=== PATIENT | male | born 1940 | race Caucasian/White ===

== ENCOUNTER 2019-12-25 09:09 | Outpatient (REF) | payer MEDICARE, BC, SELFPAY ==
[2019-12-25 09:42] LABS: Chol HDL Ratio 2.47 mg/dL (1.0-5.00); Cholesterol 141 mg/dL (0-200); HDL Cholesterol 57 mg/dL (60-100); LDL Cholesterol Calculated 72 mg/dL (50-129); LDL HDL Ratio 1.26 RATIO (0.00-3.22); Triglycerides 62 mg/dL (0-150)
== END 2019-12-25 09:10 | disposition home or self-care (01) ==
LOC: LAB 09:09
PROVIDERS: Visit Provider Dermatology
DX: Z01.89 Encounter for other specified special examinations (principal)
CPT/HCPCS: 36415; 80061

== ENCOUNTER 2020-05-17 15:14 | Outpatient (CLI) | payer MEDICARE, BC, SELFPAY ==
[2020-05-18 07:11] LABS: 25 Hydroxy Vitamin D 30 ng/mL (30-100)
== END 2020-05-17 15:15 | disposition home or self-care (01) ==
PROVIDERS: PCP Nurse Practitioner; Visit Provider Internal Medicine Nephrology
DX: N18.3 Chronic kidney disease, stage 3 (moderate) (principal)
CPT/HCPCS: 36415; 82306

== ENCOUNTER 2020-05-30 07:53 | Outpatient (CLI) | payer MEDICARE, BC, SELFPAY ==
[2020-05-30 08:40] LABS: Basophils # 0.1 10^3/uL (0.0-0.1); Basophils % 0.7 %; Eosinophils # 0.2 10^3/uL (0.0-0.8); Eosinophils % 3.2 %; Hematocrit 33.1 % (42.0-52.0); Hemoglobin 9.3 g/dL (11.7-16.6); Lymphocytes # 1.1 10^3/uL (0.8-4.8); Lymphocytes % 14.1 %; Mean Corpuscular HGB Conc 28.1 g/dL (30.0-36.0); Mean Corpuscular Hemoglobin 21.8 pg (28.0-34.0); Mean Corpuscular Volume 77.5 fL (80-94); Monocytes # 0.4 10^3/uL (0.2-0.9); Monocytes % 5.6 %; Neutrophils # 5.65 10^3/uL (1.8-7.7); Nucleated Red Blood Cells % 0 %; Platelet Count 180 10^3/cmm (130-400); Red Blood Count 4.27 10^6/uL (4.1-5.3); Red Cell Distribution Width 17.6 % (12.1-15.1); White Blood Count 7.4 10^3/uL (4.0-10.0)
[2020-05-30 09:04] LABS: Albumin Level 3.8 g/dL (3.5-5.2); Anion Gap 12.4 (5-19); Blood Urea Nitrogen 25 mg/dL (8-23); Calcium 9.1 mg/dL (8.5-10.5); Carbon Dioxide 24 mmol/L (22-29); Chloride 105 mmol/L (98-107); Glucose 98 mg/dL (65-115); Phosphorus 3.1 mg/dL (2.5-4.5); Potassium 3.4 mmol/L (3.5-5.1); Sodium 138 mmol/L (136-145)
[2020-05-30 09:16] LABS: Calcium 9.6 mg/dL (8.5-10.5); Parathyroid Hormone 102.3 pg/mL (15-65)
== END 2020-05-30 07:54 | disposition home or self-care (01) ==
PROVIDERS: Visit Provider Internal Medicine Nephrology
DX: N18.3 Chronic kidney disease, stage 3 (moderate) (principal)
CPT/HCPCS: 80069; 82306; 82310; 83970; 85025

== ENCOUNTER → 2020-07-27 18:34 | Outpatient (BNVA) | payer MEDICARE, BC, SELFPAY | PROVIDERS: Visit Provider Nurse Practitioner Family | DX: N39.0 Urinary tract infection, site not specified (principal) | CPT/HCPCS: 81000; 87086 ==

== ENCOUNTER → 2020-11-15 13:04 | Outpatient (BNVA) | payer MEDICARE, BC, SELFPAY | PROVIDERS: Visit Provider Family Medicine | DX: E78.00 Pure hypercholesterolemia, unspecified (principal); I10 Essential (primary) hypertension; K21.9 Gastro-esophageal reflux disease without esophagitis; D64.9 Anemia, unspecified; Z96.652 Presence of left artificial knee joint | CPT/HCPCS: 80053; 80061; 85025 ==

== ENCOUNTER 2021-02-06 09:52 | Outpatient (CLI) | payer MEDICARE, BC, SELFPAY ==
--- NOTE | 2021-02-06 10:30 | CT_ITS ---
WS: [id number] CT ABDOMEN PELVIS TECHNIQUE: Noncontrast CT of the abdomen and pelvis with coronal and sagittal reformatted images. CLINICAL INFORMATION: trauma to right abdomen COMPARISON: CT 8 10,018 DLP: 1701.[address] scans at [facility] use at least one of these dose optimization techniques: automat ed exposure control; mA and/or kV adjustment per patient size (includes targeted exams where dose is matched to clinical indication); or iterative reconstruction. FINDINGS: Prior postoperative changes infrarenal aortic endograft repair with biiliac extension is unchanged. L dionte bases are well aerated. Excluded infrarenal abdominal aortic aneurysm sac measures 4.7 x 5.1 CM. This is increased compared t o 2018 where it measured 4.1 x 3.9cm.Endograft repair has been extended to involve the thoracic aorta . Bilateral proximal renal artery stents. This is new from previous. Celiac and SMA stent. Tortuous e ctatic common iliac arteries. Dense vascular calcification. Mesenteric calcification unchanged. Numerous incidental low-attenuation hepatic cysts. Cholelithiasis. Low-attenuation lesions in the spl een likely cysts or hemangiomas. Small esophageal hiatal hernia. 15 mm adrenal adenoma moderate spondylitic changes lumbar spine. No visualized rib fractures in the l ower chest or upper abdomen.. Left gland is normal. Bilateral renal cortical atrophy. No hydronephros is in either kidney. Stable bilateral renal cysts. Calcified enlarged prostate measuring 4.5 CM. Normal sigmoid colon. No evidence of small or large bow el obstruction. Fat-containing umbilical hernia. Sternotomy. CT/CT abdomen pelvis wo con [id number] IMPRESSION: 1. No visualized rib fractures in the upper abdomen. 2. Prior aortic endograft repair with interval increase in size of the exclude d aneurysm sac today measuring 5.1 x 4.7 cm concerning for slow endoleak. Recom mend further evaluation with aortic endograft protocol. 3. Extension of the endograft repair into the thoracic aorta is new from previ ous. 4. Bilateral renal artery stents and mesenteric stent. 5. Stable bilateral hepatic cysts. 6. Cholelithiasis. 7. Renal cortical atrophy with stable presumed small renal cysts. 8. Small esophageal hiatal hernia. 9. No other significant interval changes. 10. Enlarged prostate measuring 4.5 CM. Recommend correlation PSA.
== END 2021-02-06 09:53 | disposition home or self-care (01) ==
LOC: RADWPI 10:03
PROVIDERS: PCP Family Medicine; Visit Provider Family Medicine
DX: S30.1XXA Contusion of abdominal wall, initial encounter (principal); X58.XXXA Exposure to other specified factors, initial encounter; D64.9 Anemia, unspecified; I10 Essential (primary) hypertension; N18.9 Chronic kidney disease, unspecified; N40.0 Benign prostatic hyperplasia without lower urinary tract symptoms; K44.9 Diaphragmatic hernia without obstruction or gangrene; N26.1 Atrophy of kidney (terminal); N28.1 Cyst of kidney, acquired; K76.89 Other specified diseases of liver
CPT/HCPCS: 74176; 80053; 85025; G0103

== ENCOUNTER → 2021-04-17 11:35 | Outpatient (BNVA) | payer MEDICARE, BC, SELFPAY | PROVIDERS: PCP Family Medicine; Visit Provider Family Medicine | DX: E78.00 Pure hypercholesterolemia, unspecified (principal); I10 Essential (primary) hypertension; H81.10 Benign paroxysmal vertigo, unspecified ear; N18.31 Chronic kidney disease, stage 3a; K21.9 Gastro-esophageal reflux disease without esophagitis | CPT/HCPCS: 80053; 80061; 85025 ==

== ENCOUNTER 2021-05-25 12:11 | Emergency (ER) | payer MEDICARE, BC, SELFPAY ==
[2021-05-25] VITALS (7 sets, daily range): BP systolic 178–195; BP diastolic 67–100; PULSE 16–72; RESP 16–18; TEMP 36.6; O2SAT 95–100; BMI 27.1
--- NOTE | 2021-05-25 12:18 | ECG_ITS ---
[facility] Test Date: 2021-05-25 Pat Name: Evans Romero Department: Room: Gender: Male Rig Superintendent: : 1940 Requested By: Shukri Ball Order Number: [id number] Sharonda MD: GEORGINA NICOLAS Measurements Intervals [place] Rate: 69 P: 16 [place]: 186 QRS: -15 QRSD: 101 T: 74 QT: 403 QTc: 432 Interpretive Statements SINUS RHYTHM INCOMPLETE RIGHT BUNDLE BRANCH BLOCK [90+ ms QRS DURATION, TERMINAL R IN V1/V2, 40+ ms S IN I/aVL/V4/V5/V6] LEFT VENTRICULAR HYPERTROPHY AND ST-T CHANGE [VOLTAGE CRITERIA PLUS ST/T ABNORMALITY] No previous ECG available for comparison Electronically Signed On 05-25-2021 19:24:07 CDT by GEORGINA NICOLAS [id number]
--- NOTE | 2021-05-25 12:19 | ED_ITS ---
HPI - General Adult General: Chief complaint: Altered Mental Status Stated complaint: AMS/ HALLUCINATING Time Seen by Provider: 05/25/21 12:13 History of Present Illness: HPI narrative: This patient is an 80-year-old male who presents to the emergency department complaining of mental status changes. Patient was found sitting in the backseat of his pickup truck for over 2 hours at a local [email or web address]. Police Department states the patient just sat there. Wh en he was approached and asked what he was doing he stated that a female had driven him to the area when anxiety is the bathroom. But after being observed for 2 hours there was no other person there. Patient other than that cannot give any description of the person or when he got picked up from home. Patient stated that he woke up around 6 AM and has not had breakfast. Patient admits that he has been seen by his primary care physician over the past week or so due to confusion issues. Patient believes that it was related to medications. Medical records show that the patient has not been seen by primary care related to this facility since 10 April and at that time was related to vertigo. Patient states that he has had issues where he sees people sitting around corners trying to sneak up on him. Will do medical evaluation treat as needed Onset (ago): unknown Associated symptoms: Deny chest pain, dyspnea, headache(s), nausea, rash, palpitations or vomiting Review of Systems General: Reports: 10 or more systems reviewed and unremarkable except in HPI and below Const: Denies: fever(s), chills, body aches or fatigue Eyes: Denies: change in vision or blurry vision ENMT: Denies: throat pain, hoarseness or mouth pain Card: Denies: chest pain, palpitations, irregular heart rhythm, edema, swelling of feet/ankles or lightheadedness Resp: Denies: dyspnea, productive cough, non-productive cough, wheezing or pain on inspiration GI: Denies: abdominal pain, nausea or vomiting : Denies: flank pain, dysuria, urinary frequency, urinary urgency or urinary hesitancy Musc: Denies: neck pain, back pain, extremity pain, extremity swelling, joint pain, joint swelling, joint redness, joint warmth or limited range of motion Skin/Breast: Denies: rash, pruritus, erythema or skin tenderness Neuro: Denies: headache(s), numbness in extremities or weakness in extremities Psych: Reports: memory loss and visual hallucinations; Denies: anxiety or depression PFSH ED PFSH: Medical History Anemia Benign positional vertigo Cholelithiasis Chronic GERD Chronic pain disorder CKD (chronic kidney disease) Elevated PSA HTN (hypertension) Hypercholesteremia Surgical History History of abdominal aortic aneurysm (AAA) repair History of left knee replacement 01/07/2020 History of right knee joint replacement Hx of hernia repair 2006 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 Family History Other Cancer Social History Smoking and tobacco status: never smoked Alcohol intake: never History of recent travel: No Physical Exam Const: COMMON NORMALS: no acute distress, average body habitus, no limitations, healthy appearing, alert and well nourished ORIENTATION/CONSCIOUSNESS: Yes oriented to person and Yes oriented to place HENMT: COMMON NORMALS: normocephalic, atraumatic, hearing grossly normal bilaterally, external ears normal, EAC's normal, TM's normal bilaterally, Normal external nose present, Normal nasal mucous membranes and turbinates present, moist oral mucous membranes, oropharynx normal, dentition normal and gingiva normal HEAD & SCALP: normocephalic and atraumatic NOSE: Normal external nose present and Normal nasal mucous membranes and turbinates present EXTERNAL EAR: Yes external ears normal EXTERNAL AUDITORY CANAL: EAC's normal TYMPANIC MEMBRANE: TM's normal bilaterally Neck/C-Spine: COMMON NORMALS: full ROM, no lymphadenopathy, supple, no m eningeal signs, no JVD, Thyroid normal and No carotid bruits THYROID: Thyroid normal Chest: COMMONS NORMALS: normal inspection of the chest, normal palpation of entire chest wall, normal inspection of the breasts and normal palpation of the breasts Breast/axilla inspection: Yes normal inspection of the breasts BREAST/AXILLA PALPATION: Yes normal palpation of the breasts Resp: COMMON NORMALS: normal respiratory effort, No retractions, No use of accessory muscles, clear to auscultation bilaterally and percussion normal AUSCULTATION: clear to auscultation bilaterally PERCUSSION: percussion normal Cardio: COMMON NORMALS: no JVD, regular rate, regular rhythm, S1 normal heart sound present, S2 normal heart sound present, No gallops present (Cardio), No clicks present (Cardio), No murmurs present (Cardio), No rub (Cardio) and Peripheral pulses 2+ throughout RATE: regular rate RHYTHM: regular rhythm HEART SOUNDS: S1 normal heart sound present and S2 normal heart sound present PERIPHERAL PULSES: Peripheral pulses 2+ throughout GI: COMMON NORMALS: Normal to inspection, nondistended, normoactive bowel sounds present, Soft to palpation, non-tender, No hepatosplenomegaly present, no masses and no bruits PALPATION: Yes Soft to palpation and Yes No hepatosplenomegaly present : COMMON NORMALS: Yes no CVA tenderness BLADDER/KIDNEY EXAM: Yes no CVA tenderness Back/Pelvis: COMMON NORMALS: no CVA tenderness, thoracic and lumbar spine normal to inspection, no thoracic nor lumbar tenderness, thoraco-lumbar ROM normal and straight leg raise negative bilaterally Extremity: COMMON NORMALS: normal to inspection, full ROM, capillary refill normal, no joint enlargement, no clubbing, cyanosis or edema, no calf tenderness and no pedal edema Neuro: COMMON NORMALS: moves all extremities, no focal motor deficits and no sensory deficits noted SENSORIUM/ORIENTATION: Yes alert, Yes oriented to person and Yes oriented to place MENINGEAL SIGNS: Yes no meningeal signs Course Reevaluation(s): Reevaluation #1: Patient appears to be medically stable. But still confused. When asking patient if he knows where he is at he says [place]. Patient is 80 years old states he has no family in the area. We'll have nursing staff work on [facility] psych placement. Time: 14:15 Vital Signs: Vital signs: Vital Signs Temperature 97.8 F 05/25/21 12:17 Pulse Rate 16 L 05/25/21 14:10 Respiratory Rate 18 05/25/21 14:10 Blood Pressure 195/98 05/25/21 14:10 Pulse Oximetry 96 05/25/21 14:10 MDM - General Adult MDM Narrative: Medical decision making narrative: This patient is an 80-year-old male who presents to the emergency department complaining of mental status changes. Patient was found sitting in the backseat of his pickup truck for over 2 hours at a local [email or web address]. Police Department states the patient just sat there. When he was approached and asked what he was doing he stated that a female had driven him to the area when anxiety is the bathroom. But after being observed for 2 hours there was no other person there. Patient other than that cannot give any description of the person or when he got picked up from home. Patient stated that he woke up around 6 AM and has not had breakfast. Patient admits that he has been seen by his primary care physician over the past week or so due to confusion issues. Patient believes that it was related to medications.Medical records show that the patient has not been seen by primary care related to this facility since 10 April and at that time was related to vertigo. Patient states that he has had issues where he sees people sitting around corners trying to sneak up on him. Lab Data: Labs: Lab Results 05/25/21 05/25/21 05/25/21 Range/Units 12:33 12:33 13:00 WBC 7.0 (4.0-10.0) 10^3/ uL RBC 4.24 (4.1-5.3) 10^6/u L Hgb 11.5 L (11.7-16.6) g/dL Hct 37.3 L (42.0-52.0) % MCV 88.0 (80-94) fL MCH 27.1 L (28.0-34.0) pg MCHC 30.8 (30.0-36.0) g/dL RDW 15.6 H (12.1-15.1) % Plt Count 158 (130-400) 10^3/c mm MPV 10.0 (7.4-10.4) fL Neut % (Auto) 78.6 % Lymph % (Auto) 12.5 % Meigs % (Auto) 6.0 % Eos % (Auto) 1.7 % Baso % (Auto) 0.9 % Neut # (Auto) 5.53 (1.8-7.7) 10^3/u L Lymph # (Auto) 0.9 (0.8-4.8) 10^3/u L Meigs # (Auto) 0.4 (0.2-0.9) 10^3/u L Eos # (Auto) 0.1 (0.0-0.8) 10^3/u L Baso # (Auto) 0.1 (0.0-0.1) 10^3/u L Nucleated RBC % (a uto) 0 % Nucleated RBCs # 0.0 /100WBC Sodium (136-145) mmol/L Potassium (3.5-5.1) mmol/L Chloride (98-107) mmol/L Carbon Dioxide (22-29) mmol/L Anion Gap (5-19) BUN (8-23) mg/dL Creatinine (0.7-1.2) mg/dL GFR Calculation Glucose (65-115) mg/dL Calculated Osmolal ity (285-295) mOsm/k g Calcium (8.5-10.5) mg/dL Total Bilirubin (0.15-1.2) mg/dL AST (0-40) U/L ALT (0-41) U/L Alkaline Phosphata se (40-130) IU/L Ammonia (16-60) umol/L Total Protein (6.6-8.7) g/dL Albumin (3.5-5.2) g/dL Globulin (1.3-4.6) g/dL Urine Color Yellow (Yellow) Urine Appearance Clear (CLEAR) Urine pH 5 (5-7) Ur Specific Gravit y 1.020 (1.005-1.030) Urine Protein 3+ H (Negative) Urine Glucose (UA) Norm (Normal) Urine Ketones Negative (Negative) Urine Blood 3+ H (Negative) Urine Nitrate Negative (Negative) Urine Bilirubin Neg (Negative) Urine Urobilinogen Norm (Negative) mg/dL Ur Leukocyte Kim ase Trace H (Negative) Urine RBC 10-15 H (0-2) /hpf Urine WBC 10-15 H (0-5) /hpf Ur Squamous Epith Cells 0-4 H (0-5) /hpf Amorphous Sediment Not Reportable Urine Bacteria 1+ H (NONE) /hpf Hyaline Casts 0-4 H /lpf Urine Mucus Trace /hpf Salicylates (3-10) mg/dL Urine Opiates Scre en Negative (Negative) ng/mL Acetaminophen (10-30) ug/mL Ur Barbiturates Sc reen Negative (Negative) ng/mL Ur Phencyclidine S crn Negative (Negative) ng/mL Ur Amphetamines Sc reen Negative (Negative) ng/mL U Benzodiazepines Scrn Negative (Negative) ng/mL Urine Cocaine Scre en Negative (Negative) ng/mL U Marijuana (THC) Screen Negative (Negative) ng/mL Ethyl Alcohol (0-10) mg/dL 05/25/21 05/25/21 Range/Units 13:00 13:00 WBC (4.0-10.0) 10^3/ uL RBC (4.1-5.3) 10^6/u L Hgb (11.7-16.6) g/dL Hct (42.0-52.0) % MCV (80-94) fL MCH (28.0-34.0) pg MCHC (30.0-36.0) g/dL RDW (12.1-15.1) % Plt Count (130-400) 10^3/c mm MPV (7.4-10.4) fL Neut % (Auto) % Lymph % (Auto) % Meigs % (Auto) % Eos % (Auto) % Baso % (Auto) % Neut # (Auto) (1.8-7.7) 10^3/u L Lymph # (Auto) (0.8-4.8) 10^3/u L Meigs # (Auto) (0.2-0.9) 10^3/u L Eos # (Auto) (0.0-0.8) 10^3/u L Baso # (Auto) (0.0-0.1) 10^3/u L Nucleated RBC % (a uto) % Nucleated RBCs # /100WBC Sodium 141 (136-145) mmol/L Potassium 3.4 L (3.5-5.1) mmol/L Chloride 107 (98-107) mmol/L Carbon Dioxide 21 L (22-29) mmol/L Anion Gap 16.4 (5-19) BUN 38 H (8-23) mg/dL Creatinine 2.6 H (0.7-1.2) mg/dL GFR Calculation Not Reportable Glucose 94 (65-115) mg/dL Calculated Osmolal ity 301 H (285-295) mOsm/k g Calcium 9.5 (8.5-10.5) mg/dL Total Bilirubin 0.6 (0.15-1.2) mg/dL AST 11 (0-40) U/L ALT 9 (0-41) U/L Alkaline Phosphata se 130 (40-130) IU/L Ammonia 41 (16-60) umol/L Total Protein 6.2 L (6.6-8.7) g/dL Albumin 3.8 (3.5-5.2) g/dL Globulin 2.4 (1.3-4.6) g/dL Urine Color (Yellow) Urine Appearance (CLEAR) Urine pH (5-7) Ur Specific Gravit y (1.005-1.030) Urine Protein (Negative) Urine Glucose (UA) (Normal) Urine Ketones (Negative) Urine Blood (Negative) Urine Nitrate (Negative) Urine Bilirubin (Negative) Urine Urobilinogen (Negative) mg/dL Ur Leukocyte Kim ase (Negative) Urine RBC (0-2) /hpf Urine WBC (0-5) /hpf Ur Squamous Epith Cells (0-5) /hpf Amorphous Sediment Urine Bacteria (NONE) /hpf Hyaline Casts /lpf Urine Mucus /hpf Salicylates < 0.3 L (3-10) mg/dL Urine Opiates Scre en (Negative) ng/mL Acetaminophen < 5.0 L (10-30) ug/mL Ur Barbiturates Sc reen (Negative) ng/mL Ur Phencyclidine S crn (Negative) ng/mL Ur Amphetamines Sc reen (Negative) ng/mL U Benzodiazepines Scrn (Negative) ng/mL Urine Cocaine Scre en (Negative) ng/mL U Marijuana (THC) Screen (Negative) ng/mL Ethyl Alcohol < 10 (0-10) mg/dL Imaging Data^: CT Head: Attestation: I personally reviewed and interpreted this imaging study as follows: Radiologist's impression: IMPRESSION: 1. No acute intracranial hemorrhage or edema. 2. Multiple small lacunar infarcts with cerebral atrophy and mild ventriculom egaly. Minimal progression of disease since 2014. 3. Progression of the RIGHT mastoiditis. There is now increased soft tissue extending into the RIGHT internal auditory canal surrounding the inner ear ossicles. Consistent with otomastoiditis. Cannot exclude cholesteatoma on the RIGHT. EKG Data^: EKG 1: Attestation: I personally reviewed and interpreted this EKG as follows: EKG interpretation date: 05/25/21 EKG interpretation time: 12:31 Prior EKG tracings: not available for review Interpretation: Sinus rhythm with an incomplete right bundle branch block. Left ventricular hypertrophy. Heart rate 69. Computer generated interpretation: Head CT 05/25/21 12:19 IMPRESSION: 1. No acute intracranial hemorrhage or edema. 2. Multiple small lacunar infarcts with cerebral atrophy and mild ventriculomegaly. Minimal progression of disease since 2014. 3. Progression of the RIGHT mastoiditis. There is now increased soft tissue extending into the RIGHT internal auditory canal surrounding the inner ear ossicles. Consistent with otomastoiditis. Cannot exclude cholesteatoma on the RIGHT. Discharge Plan Discharge Patient Disposition: Xfer Psychiatric Hosp Clinical Impression: Acute alteration in mental status, Chronic renal insufficiency Condition: Stable Prescriptions: No Action aspirin 81 mg tablet,delayed release (DR/EC) 81 mg PO DAILY Qty: 90 RF: 3 atorvastatin 80 mg tablet 80 mg PO DAILY RF: 0 famotidine 20 mg tablet 20 mg PO BID Qty: 60 RF: 3 oxybutynin chloride 5 mg tablet 5 mg PO BID Qty: 180 RF: 1 furosemide 20 mg tablet 20 mg PO EVERY OTHER DAY RF: 0 calcitriol 0.25 mcg Capsule 0.25 mcg PO DAILY RF: 0 amlodipine 5 mg tablet 5 mg PO DAILY RF: 0 metoprolol tartrate 50 mg tablet 50 mg PO DAILY RF: 0 Referrals: Jayant Enamorado MD [Primary Care Provider] - Coding Level of Care Code ED Assistant Community Director for Chg Fwd Exam Comprehensive
--- NOTE | 2021-05-25 12:19 | CT_ITS ---
WS: [id number] CT HEAD NONCONTRAST HISTORY: HEADACHE TECHNIQUE: Contiguous axial imaging performed through the brain in 2.5 mm imaging. Bone and soft tiss ue windows. Sagittal and coronal reformats reviewed. All CT scans at [facility] use at ast one of these dose optimization techniques: automated exposure control; mA and/or kV adjustment pe r patient size (includes targeted exams where dose is matched to clinical indication); or iterative r econstruction. DLP: 1053.23 mGy.cm COMPARISON: 02/13/2015 No acute intracranial hemorrhage, midline shift or mass effect. Mild bilateral cerebral atrophy and mild chronic microvascular ischemic disease. Prior lacunar infarc t in the LEFT zurita radiata. Additional small lacunar infarct in the posterior RIGHT external capsul e and along the insular ribbons. Ventricles: Ventricles are mildly prominent on the basis of atrophy. Moderate calcification the distal vertebral and in the intracranial carotid arteries. Paranasal sinuses: As visualized are clear. Mastoid air cells: Increased fluid throughout the RIGHT mastoid air cells. This increased soft tissue density extends into the internal auditory canal and surrounds the middle ear ossicles. Progression since the prior study. Calvarium and scalp: Skull is intact with no soft tissue edema or swelling. CT/CT head wo con* [id number] IMPRESSION: 1. No acute intracranial hemorrhage or edema. 2. Multiple small lacunar infarcts with cerebral atrophy and mild ventriculome nikko. Minimal progression of disease since 2014. 3. Progression of the RIGHT mastoiditis. There is now increased soft tissue ex tending into the RIGHT internal auditory canal surrounding the inner ear ossicl es. Consistent with otomastoiditis. Cannot exclude cholesteatoma on the RIGHT.
[2021-05-25] MEDS: sodium chloride 0.9% 500 ML IV (12:58)
[2021-05-25 13:08] LABS: Amphetamines Screen Urine Negative (Negative); Barbiturates Screen Urine Negative (Negative); Benzodiazepines Screen Urine Negative (Negative); Cocaine Screen Urine Negative (Negative); Opiate Screen Urine Negative (Negative); PCP Screen Urine Negative (Negative); THC Screen Urine Negative (Negative)
[2021-05-25 13:21] LABS: Basophils # 0.1 10^3/uL (0.0-0.1); Basophils % 0.9 %; Eosinophils # 0.1 10^3/uL (0.0-0.8); Eosinophils % 1.7 %; Hematocrit 37.3 % (42.0-52.0); Hemoglobin 11.5 g/dL (11.7-16.6); Lymphocytes # 0.9 10^3/uL (0.8-4.8); Lymphocytes % 12.5 %; Mean Corpuscular HGB Conc 30.8 g/dL (30.0-36.0); Mean Corpuscular Hemoglobin 27.1 pg (28.0-34.0); Monocytes # 0.4 10^3/uL (0.2-0.9); Neutrophils # 5.53 10^3/uL (1.8-7.7); Neutrophils % 78.6 %; Nucleated Red Blood Cells % 0 %; Platelet Count 158 10^3/cmm (130-400); Red Blood Count 4.24 10^6/uL (4.1-5.3); Red Cell Distribution Width 15.6 % (12.1-15.1)
[2021-05-25 13:25] LABS: Add Urine Microscopic? YES; Bilirubin Urine Neg (Negative); Blood Urine 3+ (Negative); Glucose Urine UA Norm (Normal); Ketones Urine Negative (Negative); Leukocyte Esterase Urine Trace (Negative); Nitrate Urine Negative (Negative); Protein Urine 3+ (Negative); Urine Appearance Clear (CLEAR); Urine Color Yellow (Yellow); Urobilinogen Urine Norm (Negative); pH Urine 5 (5-7)
[2021-05-25 13:26] LABS: Bacteria Urine 1+ /hpf; Squamous Epithelial Cell Urine 0-4 /hpf (0-5)
[2021-05-25 13:26] LABS: Ammonia 41 umol/L (16-60)
[2021-05-25 13:27] LABS: Add Urine Culture? Yes; Hyaline Casts Urine 0-4 /lpf; Mucus Urine TRACE /hpf
[2021-05-25 13:39] LABS: Alanine Aminotransferase 9 U/L (0-41); Albumin Level 3.8 g/dL (3.5-5.2); Alkaline Phosphatase 130 IU/L (40-130); Aspartate Amino Transferase 11 U/L (0-40); Blood Urea Nitrogen 38 mg/dL (8-23); Calcium 9.5 mg/dL (8.5-10.5); Carbon Dioxide 21 mmol/L (22-29); Chloride 107 mmol/L (98-107); Globulin 2.4 g/dL (1.3-4.6); Glucose 94 mg/dL (65-115); Osmolality Calculated 301 mOsm/kg (285-295); Sodium 141 mmol/L (136-145); Total Bilirubin 0.6 mg/dL (0.15-1.2); Total Protein 6.2 g/dL (6.6-8.7)
[2021-05-25 13:47] LABS: Acetaminophen < 5.0 ug/mL (10-30); Alcohol Level < 10 mg/dL (0-10); Salicylate < 0.3 mg/dL (3-10)
[2021-05-25 13:50] LABS: Anion Gap 16.4 (5-19)
[2021-05-25 13:51] LABS: Potassium 3.4 mmol/L (3.5-5.1)
--- NOTE | 2021-05-25 14:35 | PC.NURSE ---
updated with daughter La Vigil ([phone]) via phone.
[2021-05-25] MEDS: amlodipine 5 mg Tablet PO (15:56)
[2021-05-25] MEDS: metoprolol tartrate 50 mg Tablet PO (15:56)
[2021-05-25 17:06] LABS: SARS Covid-2 Antigen Negative (Negative)
[2021-05-25] MEDS: potassium chloride ER 20 mEq Tablet PO (17:59)
[2021-05-25] MEDS: FUROsemide 20 mg Tablet PO (18:00)
--- NOTE | 2021-05-25 18:15 | PC.NURSE ---
khurram declined for patient potassium being low
--- NOTE | 2021-05-25 20:36 | XRR_ITS ---
PROCEDURE INFORMATION: Exam: XR Chest Exam date and time: 05/25/2021 8:36 PM Age: 80 years old Clinical indication: Cough; Patient HX: AMS unable to obtain HX TECHNIQUE: Imaging protocol: XR of the chest. Views: 1 view. COMPARISON: CT chest con [id number] 02/13/2015 6:37 PM FINDINGS: Tubes, catheters and devices: Ectatic tortuous thoracic aorta with endograft in the descending portion. Lungs: Mild right base atelectasis. The left lung is clear. Pleural spaces: Unremarkable. No pleural effusion. No pneumothorax. Heart/Mediastinum: Cardiomegaly. Bones/joints: Median sternotomy wires. XR/XR chest 1V portable [id number] IMPRESSION: 1. No acute finding. 2. Thoracic aortic aneurysm with endograft.
[2021-05-25 21:34] LABS: Thyroid Stimulating Hormone 2.81 uIU/mL (0.27-4.20)
[2021-05-26] VITALS (7 sets, daily range): BP systolic 166–188; BP diastolic 60–99; PULSE 54–78; RESP 14–18; O2SAT 94–99
--- NOTE | 2021-05-26 04:32 | PC.NURSE ---
Dereje, security sales manager reports he spoke with Evans's son who says he is driving from [facility] and will be here in the morning. [facility], [facility], and [place]. PER Anton patient would need a court order and negative PCR Covid test for [facility]. This nurse left a message for [facility]. PER Shorty there are no beds at [facility]. No beds at [place].
== END 2021-05-26 14:23 | disposition home or self-care (01) ==
PROVIDERS: Emergency Medicine; Emergency Provider Family Medicine; PCP Family Medicine
DX: R41.82 Altered mental status, unspecified (principal); I12.9 Hypertensive chronic kidney disease with stage 1 through stage 4 chronic kidney disease, or unspecified chronic kidney disease; N18.9 Chronic kidney disease, unspecified; Z79.82 Long term (current) use of aspirin; Z95.1 Presence of aortocoronary bypass graft; Z20.822 Contact with and (suspected) exposure to COVID-19
CPT/HCPCS: 70450; 71045; 80053; 80306; 80307; 81001; 82140; 84443; 85025; 87086; 87426; 93005; 96360; 99284; J7040

== ENCOUNTER 2021-06-19 11:30 | Emergency (ER) | payer MEDICARE, BC, SELFPAY ==
[2021-06-19 11:33] VITALS: BP 156/79; PULSE 62; RESP 18; TEMP 37.3; O2SAT 94; BMI 29.5
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
--- NOTE | 2021-06-19 12:00 | PC.PHAR ---
pt states he takes care of his own medications-pt states he takes the medications entered
--- NOTE | 2021-06-19 12:15 | PC.NURSE ---
patient arrived in rigid ccollar
[2021-06-19 13:07] VITALS: BP 162/78; PULSE 58; RESP 16; O2SAT 94
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
[2021-06-19 13:33] LABS: Glucose Point of Care 100 mg/dL (70-110)
[2021-06-19 13:33] LABS: Basophils # 0.1 10^3/uL (0.0-0.1); Basophils % 0.9 %; Eosinophils # 0.2 10^3/uL (0.0-0.8); Eosinophils % 2.4 %; Hematocrit 37.5 % (42.0-52.0); Hemoglobin 11.7 g/dL (11.7-16.6); Lymphocytes # 1.2 10^3/uL (0.8-4.8); Lymphocytes % 13.4 %; Mean Corpuscular HGB Conc 31.2 g/dL (30.0-36.0); Mean Corpuscular Hemoglobin 26.8 pg (28.0-34.0); Mean Corpuscular Volume 85.8 fL (80-94); Mean Platelet Volume 9.8 fL (7.4-10.4); Monocytes # 0.6 10^3/uL (0.2-0.9); Monocytes % 6.3 %; Neutrophils # 6.83 10^3/uL (1.8-7.7); Neutrophils % 76.8 %; Nucleated Red Blood Cells % 0 %; Platelet Count 200 10^3/cmm (130-400); Red Blood Count 4.37 10^6/uL (4.1-5.3); Red Cell Distribution Width 15.4 % (12.1-15.1); White Blood Count 8.9 10^3/uL (4.0-10.0)
[2021-06-19 13:56] LABS: Anion Gap 19.6 (5-19); Blood Urea Nitrogen 41 mg/dL (8-23); Calcium 9.8 mg/dL (8.5-10.5); Carbon Dioxide 23 mmol/L (22-29); Chloride 98 mmol/L (98-107); Glucose 87 mg/dL (65-115); Osmolality Calculated 293 mOsm/kg (285-295); Potassium 3.6 mmol/L (3.5-5.1); Sodium 137 mmol/L (136-145)
--- NOTE | 2021-06-19 13:58 | PC.NURSE ---
report to Jenn AHMADI at [facility] [phone]
[2021-06-19 13:59] VITALS: BP 172/74; PULSE 64; RESP 18; O2SAT 95
[2021-06-19 14:41] LABS: INR 0.99 (0.8-1.2)
[2021-06-19 14:42] LABS: Partial Thromboplastin Time 32.3 SECONDS (23.9-36.7)
[2021-06-19 15:30] VITALS: BP 182/78; PULSE 67; RESP 18; O2SAT 95
[2021-06-19 15:50] VITALS: BP 178/76; PULSE 64; RESP 18; O2SAT 94
--- NOTE | 2021-06-19 15:52 | PC.NURSE ---
Meghann Jaimes and myself counted the patients money he had 3 of $100 dollar bills, 2 $20 dollar bills, and 21 $1 dollar bills to equal $361. the money is given to Paco patients nephew as well as the patients blue jeans, socks, and shoes. I called his daughter La Vigil at [phone] to inform of patient transfer and his valuables given to Paco.
== END 2021-06-19 15:51 ==
PROVIDERS: Emergency Provider Emergency Medicine; PCP Family Medicine
DX: S06.5X0A Traumatic subdural hemorrhage without loss of consciousness, initial encounter (principal); I12.9 Hypertensive chronic kidney disease with stage 1 through stage 4 chronic kidney disease, or unspecified chronic kidney disease; N18.9 Chronic kidney disease, unspecified; V58.5XXA Driver of pick-up truck or van injured in noncollision transport accident in traffic accident, initial encounter
CPT/HCPCS: 36415; 36416; 70450; 71250; 72125; 74176; 80048; 82962; 85025; 85610; 85730; 86850; 86900; 99285

== ENCOUNTER 2021-06-28 08:58 | Emergency (ER) | payer MEDICARE, BC, SELFPAY ==
[2021-06-28] VITALS (9 sets, daily range): BP systolic 159–229; BP diastolic 77–115; PULSE 68–87; RESP 12–24; TEMP 36.8; O2SAT 91–98
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
--- NOTE | 2021-06-28 09:20 | CT_ITS ---
WS: [id number] CT ABDOMEN AND PELVIS NONCONTRAST HISTORY: abdominal pain, N/V TECHNIQUE: Imaging performed through the abdomen and pelvis. Coronal and sagittal reformats are submi tted. All CT scans at [facility] use at least one of these dose optimization techniques: automated exposure control; mA and/or kV adjustment per patient size (includes targeted exams where d ose is matched to clinical indication); or iterative reconstruction. DLP: 1452.66 mGy.cm COMPARISON: 06/19/2021 Lower thorax: Atelectasis at the LEFT lung base. Endovascular stent graft noted in the lower thoracic aorta. Moderate enlarged heart. Patient is status post endovascular grafting of the abdominal aortic aneurysm. Since the prior examin ation on 06/19/2021 there has been progressive increase in size of the [place] aneurysm sac now measur ing 7.6 x 6.8 cm. Variable density within the aneurysm sac and there is para-aortic stranding and inc reased soft tissue around the anterior aorta. Small bowel loops are closely draped over the [place] a neurysm. There is additional soft tissue stranding extending inferiorly into the retroperitoneum thro ugh the bifurcation and along the proximal iliac arteries. Hepatic and splenic low-attenuation nodules are probably cysts. No increase in size. Cholelithiasis. Low-attenuation of the pancreatic head. Neoplasm is not excluded. Heavy calcification in the splenic artery. Kidneys are mildly atrophic bilaterally with no obstruction. Diffuse fecal retention. Advanced degenerative changes throughout the lumbar spine. CT/CT abdomen pelvis wo con [id number] IMPRESSION: 1. Progressive enlargement of the [place] abdominal aortic aneurysm which has u ndergone prior endovascular stent grafting. There is now a periaortic hematoma and variable density within the [place] aneurysm. Highly suspicious for endovasc ular leak and rupture of aorta. 2. Increased soft tissue surrounding the aorta. Aortoenteric fistula should be considered as there is soft tissue thickening involving the overlapping proxim al small bowel. 3. Cholelithiasis. 4. Low-attenuation mass at the pancreatic head. Notified MYRNA De La Fuente at 06/28/2021 10:48 AM.
--- NOTE | 2021-06-28 09:29 | PC.PHAR ---
PT STATES HE TAKES CARE OF HIS OWN MEDICATIONS-PT STATES HE TAKES THE MEDICATIONS ENTERED
[2021-06-28] MEDS: amlodipine 5 mg Tablet PO (09:42)
[2021-06-28] MEDS: metoprolol tartrate 50 mg Tablet PO (09:42)
[2021-06-28 09:59] LABS: Basophils # 0.1 10^3/uL (0.0-0.1); Basophils % 0.6 %; Eosinophils % 0.1 %; Hematocrit 34.4 % (42.0-52.0); Hemoglobin 11.1 g/dL (11.7-16.6); Lymphocytes # 0.4 10^3/uL (0.8-4.8); Lymphocytes % 3.9 %; Mean Corpuscular HGB Conc 32.3 g/dL (30.0-36.0); Mean Corpuscular Hemoglobin 27.5 pg (28.0-34.0); Mean Corpuscular Volume 85.1 fl (80-94); Mean Platelet Volume 9.2 fL (7.4-10.4); Monocytes # 0.3 10^3/uL (0.2-0.9); Monocytes % 2.5 %; Neutrophils # 10.17 10^3/uL (1.8-7.7); Neutrophils % 92.4 %; Nucleated Red Blood Cells % 0 %; Platelet Count 152 10^3/cmm (130-400); Red Blood Count 4.04 10^6/uL (4.1-5.3); Red Cell Distribution Width 15.5 % (12.1-15.1)
[2021-06-28 10:17] LABS: Alanine Aminotransferase 8 U/L (0-41); Albumin Level 4.3 g/dL (3.5-5.2); Alkaline Phosphatase 142 IU/L (40-130); Anion Gap 20.7 (5-19); Aspartate Amino Transferase 10 U/L (0-40); Blood Urea Nitrogen 37 mg/dL (8-23); Calcium 10.2 mg/dL (8.5-10.5); Carbon Dioxide 22 mmol/L (22-29); Chloride 99 mmol/L (98-107); Globulin 2.7 g/dL (1.3-4.6); Glucose 148 mg/dL (65-115); Lipase 22 U/L (13-60); Osmolality Calculated 297 mOsm/kg (285-295); Potassium 3.7 mmol/L (3.5-5.1); Sodium 138 mmol/L (136-145); Total Bilirubin 0.8 mg/dL (0.15-1.2)
[2021-06-28] MEDS: esmolol drip 2,500 MG/250 ML PREMIX 27.22 MG IV (11:02)
--- NOTE | 2021-06-28 11:06 | PC.NURSE ---
Pt was administered 500mcg/kg of esmolol over one minute prior to drip being started.
--- NOTE | 2021-06-28 11:16 | CT_ITS ---
WS: [id number] CT chest, abdomen and pelvis ANGIOGRAPHY WITH REFORMATS HISTORY: ?ruptured AAA TECHNIQUE: Noncontrast examination first performed. Contiguous axial images are obtained through the chest, abdomen and pelvis during arterial injection of intravenous contrast. Images are reconstructed to evaluate the pulmonary arteries. MIP imaging also reviewed. All CT scans at [facility] use at least one of these dose optimization techniques: automated exposure control; mA and/or kV ad justment per patient size (includes targeted exams where dose is matched to clinical indication); or iterative reconstruction. CONTRAST: Omnipaque 350; 95 mL IV. DLP: 4964.96 mGy.cm COMPARISON: Study earlier the same day and also 06/19/2021. Extensive endovascular stent grafting of the thoracic aorta. Aorta is markedly ectatic and tortuous. Overall size is not significantly changed. Heart is markedly enlarged. Stable appearance of the chest . Endovascular stent grafting of the abdominal aorta is also noted. There is active hemorrhage into the [place] thrombus of the aneurysm. The [place] aneurysm has markedly increase in size as described on t he study earlier today and also the most recent examination. On the delayed imaging there is enhancem ent and contrast extravasation into the thrombus. Periaortic hematoma has not significantly increased in size and there is no active extravasation into the para-aortic hematoma. Rupture of aorta is beverley g the anterior margin most likely. The retroperitoneal hematoma has not significantly increased in si ze. Kidneys are both enhancing but are small caliber with multiple cysts. Cholelithiasis. Splenic and hepatic cysts. Lobulated cystic mass at the pancreatic head. Sensitive atherosclerosis splenic artery. High density contrast within the urinary bladder from ureteral extravasation. CT/CT angio chest abdomen pelvis IMPRESSION: 1. Active extravasation from an endovascular leak with enlarging abdominal aor tic aneurysm. There is enhancement within the [place] thrombus surrounding the s tent graft. Discontinuity of the anterior wall of aorta. No enlarging periaorti c hematoma and no acute active extravasation into the periaortic hematoma. 2. Thoracic aortic aneurysm and stent are stable. 3. Cholelithiasis and lobulated cystic mass at the pancreatic head. Notified Russell Lemus MD at 06/28/2021 12:07 PM.
[2021-06-28 11:26] LABS: Add Urine Microscopic? YES; Bacteria Urine TRACE /hpf; Bilirubin Urine Neg (Negative); Blood Urine 3+ (Negative); Glucose Urine UA Norm (Normal); Ketones Urine Negative (Negative); Leukocyte Esterase Urine Negative (Negative); Nitrate Urine Negative (Negative); Protein Urine 3+ (Negative); Squamous Epithelial Cell Urine 0-4 /hpf (0-5); Sulfosalicylic Acid Urine Positive (Negative); Urine Appearance Clear (CLEAR); Urine Color Yellow (Yellow); Urobilinogen Urine Neg (Negative); pH Urine 8 (5-7)
[2021-06-28] MEDS: fentaNYL 50 mcg/mL INJ 2mL IVP (11:51)
[2021-06-28] MEDS: iodixanol 320 mg/mL 100mL Btl IV (11:53)
[2021-06-28] MEDS: nicardipine 20 MG/200 ML PREMIX 50 MG IV (11:55)
[2021-06-28] MEDS: esmolol drip 2,500 MG/250 ML PREMIX 81.65 MG IV (12:21)
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
[2021-06-28 12:56] LABS: SARS Covid-2 Antigen Negative (Negative)
== END 2021-06-28 12:41 ==
PROVIDERS: Physician Assistant; Emergency Provider Emergency Medicine; PCP Family Medicine
DX: I71.3 Abdominal aortic aneurysm, ruptured (principal); I10 Essential (primary) hypertension; Z79.82 Long term (current) use of aspirin; Z20.822 Contact with and (suspected) exposure to COVID-19
CPT/HCPCS: 71275; 74174; 74176; 80053; 81001; 83690; 85025; 87426; 96365; 96367; 96375; 99285; J3010; J3490; Q9967

== ENCOUNTER 2021-10-31 15:43 | Outpatient (CLI) | payer MEDICARE, SELFPAY ==
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
== END 2021-10-31 15:44 | disposition home or self-care (01) ==
PROVIDERS: PCP Family Medicine; Visit Provider Family Medicine
DX: M54.50 Low back pain, unspecified (principal); I71.4 Abdominal aortic aneurysm, without rupture; M47.817 Spondylosis without myelopathy or radiculopathy, lumbosacral region; M48.061 Spinal stenosis, lumbar region without neurogenic claudication
CPT/HCPCS: 72131